=== PATIENT | female | born 1980 | race Caucasian/White ===

== ENCOUNTER 2016-12-07 06:27 | Day surgery (SDC) | payer BC ==
--- NOTE | 2016-12-06 16:33 | PCM.PREANE ---
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 Respiratory: Reports: no symptoms Cardiovascular: Reports: no symptoms GI: Reports: no symptoms Other: Reports: none - PHYSICAL ASSESSMENT Vital Signs: Last Vital Signs Temp 98.2 F 12/07/16 06:47 Pulse 78 12/07/16 06:47 Resp 16 12/07/16 06:47 BP 136/80 12/07/16 06:47 Pulse Ox 98 12/07/16 06:47 Height: 5 ft 1.5 in Weight: 110 lb - ALLERGIES Allergies/Adverse Reactions: Allergies Allergy/AdvReac Type Severity Reaction Status Date / Time No Known Allergies Allergy Verified 05/04/14 09:57 - ANESTHESIA PLAN Anesthesia Type Planned: general anesthesia - ACKNOWLEDGEMENTS Pt an appropriate candidate for the planned anesthesia: Yes Alternatives and risks of anesthesia discussed w pt/guardian: Yes Pt/Guardian understands and agree with anesthesia plan: Yes PreAnesthesia Questionnaire HEENT History: Reports: None Cardiovascular History: Reports: None Respiratory History: Reports: None Gastrointestinal History: Reports: None Genitourinary History: Reports: None 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 (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 below) Other OB/BYN History: infertility Musculoskeletal History: Reports: None Neurological History: Reports: None Psychiatric History: Reports: None Endocrine/Metabolic History: Reports: None Hematologic History: Reports: None Immunologic History: Reports: None Oncologic (Cancer) History: Reports: None Dermatologic History: Reports: None - Infectious Disease History Infectious Disease History: Reports: None - Past Surgical History Head Surgeries/Procedures: Reports: None GI Surgical History: Reports: Cholecystectomy Other Female Surgeries/Procedures: hx of hysteroscopy with myomectomy - SUBSTANCE USE Smoking Status *Q: Never Smoker Number of Drinks Per Day: 0 Recreational Drug Use History: No - HOME MEDS Home Medications: Home Meds Colestipol [Colestipol HCl] 1 tab PO DAILY 12/04/16 [History] PNV95/Ferrous Fumarate/FA [ Vitamins Tablet] 1 tab PO DAILY 12/04/16 [ History] - CURRENT (IN HOUSE) MEDS Current Meds: Current Medications Lactated Ringer's (Ringers, Lactated) 1,000 mls @ 125 mls/hr IV ASDIRECTED [facility] Last Admin: 12/07/16 06:51 Dose: 125 mls/hr Sodium Chloride (Saline Flush) 10 ml FLUSH ASDIRECTED PRN PRN Reason: Keep Vein Open Sodium Chloride (Saline Flush) 2.5 ml FLUSH ASDIRECTED PRN PRN Reason: Keep Vein Open Sodium Chloride (Saline Flush) 10 ml FLUSH ASDIRECTED PRN PRN Reason: Keep Vein Open Sodium Chloride (Saline Flush) 2.5 ml FLUSH ASDIRECTED PRN PRN Reason: Keep Vein Open Discontinued Medications Fentanyl (Sublimaze) Confirm Administered Dose 100 mcg .ROUTE .STK-MED ONE Stop: 12/07/16 07:24 Lactated Ringer's (Ringers, Lactated) 1,000 mls @ 125 mls/hr IV ASDIRECTED [facility] Midazolam HCl (Versed 1 Mg/Ml) Confirm Administered Dose 2 mg .ROUTE .STK-MED ONE Stop: 12/07/16 07:25 Propofol (Diprivan 20 Ml) Confirm Administered Dose 200 mg .ROUTE .STK-MED ONE Stop: 12/07/16 07:26 Sodium Chloride (Saline Flush) 10 ml FLUSH ASDIRECTED PRN PRN Reason: Keep Vein Open Sodium Chloride (Saline Flush) 2.5 ml FLUSH ASDIRECTED PRN PRN Reason: Keep Vein Open <Osvaldo Chaudhary - Last Filed: 12/07/16 07:33> Preanesthetic Assessment - REVIEW OF SYSTEMS Constitutional: Reports: no symptoms 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: 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: no symptoms Respiratory: Reports: no symptoms Cardiovascular: Reports: no symptoms GI: Reports: no symptoms Other: Reports: none - PHYSICAL ASSESSMENT ASA Class: 1 Mental Status: alert & oriented x3 Airway Class: Mallampati = 1 Dentition: Reports: normal dentition Thyro-Mental Finger Breadths: 3 Mouth Opening Finger Breadths: 3 ROM/Head Extension: full Respiratory Status: lungs clear to auscultation bilaterally Cardiovascular Status: regular rate & rhythm, normal S1, S2, no murmur, blood pressure WNL - BLOOD Blood Available: No Product(s) Available: None - ANESTHESIA PLAN Anesthesia Type Planned: general anesthesia - ACKNOWLEDGEMENTS Pt an appropriate candidate for the planned anesthesia: Yes Alternatives and risks of anesthesia discussed w pt/guardian: Yes Pt/Guardian understands and agree with anesthesia plan: Yes
[~2016-12-07 06:27] MED LIST: Lactated Ringers 1,000 ML IV SCH; Sodium Chloride 0.9% 10 ML Syringe FLUSH PRN; Sodium Chloride 0.9% 2.5 ML Syringe FLUSH PRN
[2016-12-07] MEDS ORDERED: fentaNYL 100 MCG/2 ML SDV ONE (07:23)
[2016-12-07] MEDS ORDERED: Midazolam 1 MG/ML 2 ML SDV ONE (07:24)
[2016-12-07] MEDS ORDERED: Propofol 200 MG/20 ML SDV ONE (07:25)
[2016-12-07] MEDS ORDERED: Ondansetron 4 MG/2 ML SDV ONE (08:48)
[2016-12-07] MEDS ORDERED: Dexamethasone 4 MG/ML 5 ML MDV ONE (08:48)
[2016-12-07] MEDS ORDERED: ePHEDrine 50 MG/ML SDV ONE (08:48)
[2016-12-07] MEDS ORDERED: Ketorolac 30 MG/ML SDV ONE (08:48)
--- NOTE | 2016-12-07 09:01 | PCM.OPNOTE ---
- General Post-Op/Procedure Note Date of Surgery/Procedure: 12/07/16 Operative Procedure(s): Operative hysteroscopy/polypectomy/D&C/colposcopy with biopsy Findings: Uterine polyp posterior mid fundal region, metaplasia/CHARLIE I Pre Op Diagnosis: Endometrial polyp. LGSIL pap Post-Op Diagnosis: Same Anesthesia Technique: General LMA Primary Surgeon: Mary Perez Pathology: uterine polyp, curretings of endometrium, ECC, Biopsy of cervix at 11 and 6 oclock Fluid Replacement, Intraop: 1,000 EBL in mLs: 50 Complications: None known Condition: Good Free Text/Narrative:: Dictation [id number]
--- NOTE | 2016-12-07 09:20 | PCM.POSTAN ---
POST ANESTHESIA ASSESSMENT - MENTAL STATUS Mental Status: alert, oriented - RESPIRATORY Respiratory Status: respiratory rate WNL, airway patent, O2 saturation stable - CARDIOVASCULAR CV Status: pulse rate WNL, blood pressure stable - GASTROINTESTINAL GI Status: no symptoms - POST OP HYDRATION Hydration Status: adequate & stable
[2016-12-07 09:32] VITALS: BP 146/88
[2016-12-07] MEDS ORDERED: Acetaminophen/oxyCODONE 325-5 MG Tab PO PRN (09:40)
--- NOTE | 2016-12-07 10:15 | OR ---
SURGEON: Mary Perez M.D. DATE OF PROCEDURE: 12/07/2016 PREOPERATIVE DIAGNOSES: 1. Endometrial polyp. 2. Low-grade squamous intraepithelial lesion pap. POSTOPERATIVE DIAGNOSES: 1. Endometrial polyp. 2. Low-grade squamous intraepithelial lesion pap. PROCEDURE: Operative hysteroscopy with polypectomy, curettage of endometrium, colposcopy with biopsies. ESTIMATED BLOOD LOSS: 50 mL. ANESTHESIA: General LMA. FLUIDS: 1000 mL of crystalloid. COMPLICATIONS: None known. FINDINGS: Mid fundal uterine polyp. Otherwise, normal-appearing uterine cavity, cervical stenosis. Metaplasia CHARLIE 1 on colposcopy. DISPOSITION: The patient to PACU, stable. PROCEDURE IN DETAIL: Katy is a 36-year-old female, who is preparing to undergo IVF in January and then preparation of endometrium was evaluated and Dr De La Torre felt there was a polypoid lesion and is asking for her to undergo hysteroscopy in order to further evaluate and remove. The risks of the procedure have been discussed with the patient. She also has had recent pap smear which was LGSIL and she requests colposcopy be performed at the same time as the hysteroscopy. Once again, risks of the procedure have been discussed and proper consent obtained. The patient was taken to operating room, where she underwent general LMA and was placed in modified supine position, was prepped in the usual sterile fashion. SCDs lower extremities. The bladder was drained. Time-out was performed. Speculum was introduced in the vagina and posterior lip of the cervix was grasped. The cervix was gently dilated to 6 mm. It was not easily dilated as the internal os was fairly stenotic. Then the hysteroscope was introduced using normal saline with distension media. The fundus appeared smooth with normal appearing ostia. There was a posterior mid fundal polypoid lesion noted. The MyoSure was introduced and the polyp was resected. Curettage was then performed. The remaining endometrium uterine cavity appears normal at this juncture, photographs taken. The hysteroscope was now removed. Attention was turned to performing colposcopy. colposcope was centered. The cervix was visualized and dilute acetic acid was then placed upon the cervix after GreenLight exam was performed. The majority of the tissue appears to be inflammatory metaplasia. However, there was a mosaic pattern at the 11 o'clock position. Using Tischler, biopsy was performed, posteriorly at 6 o'clock a biopsy was also performed. Endocervical curettings were now performed. All specimens to pathology. Monsel's was gently placed followed by silver nitrate along the biopsy site. Hemostasis was then evident. The patient tolerated the procedure well. All instruments removed from the vagina. Sponge and instrument count was correct x2. The patient will go to PACU in stable condition. Specimens to pathology. NICKI / TIM /[id number] MTDKetan
--- NOTE | 2016-12-07 10:23 | PCM48HPAN ---
Post Anesthesia Note - EVALUATION WITHIN 48HRS OF ANESTHETIC Vital Signs in Normal Range: Yes Patient Participated in Evaluation: Yes Respiratory Function Stable: Yes Airway Patent: Yes Cardiovascular Function Stable: Yes Hydration Status Stable: Yes Pain Control Satisfactory: Yes Nausea and Vomiting Control Satisfactory: Yes Mental Status Recovered: Yes
== END 2016-12-07 10:15 | disposition home or self-care (01) ==
LOC: MW.SDS 06:27
PROVIDERS: ATTEND Obstetrics & Gynecology
PROC: 0UB98ZZ Excision of Uterus, Via Natural or Artificial Opening Endoscopic (ICD-10-PCS; principal; 2016-12-07)
PROC: 0UDB8ZZ Extraction of Endometrium, Via Natural or Artificial Opening Endoscopic (ICD-10-PCS; 2016-12-07)
PROC: 0UJH8ZZ Inspection of Vagina and Cul-de-sac, Via Natural or Artificial Opening Endoscopic (ICD-10-PCS; 2016-12-07)
DX: N87.0 Mild cervical dysplasia (principal); N84.0 Polyp of corpus uteri; N97.9 Female infertility, unspecified
CPT/HCPCS: 57454; 58558; 88305; A9270; J1100; J1885; J2250; J2405; J3010; J7120; 00952; J2704

== ENCOUNTER → 2017-02-05 | Outpatient (CLI) | payer BC | LOC: MW.LAB 09:50 | PROVIDERS: ATTEND Obstetrics & Gynecology | DX: Z33.1 Pregnant state, incidental (principal) | CPT/HCPCS: 36415; 84144; 84702 ==

== ENCOUNTER → 2017-02-15 | Outpatient (CLI) | payer BC | LOC: MW.LAB 11:23 | PROVIDERS: ATTEND Nurse Practitioner Family | DX: O09.811 Supervision of pregnancy resulting from assisted reproductive technology, first trimester (principal) | CPT/HCPCS: 36415; 84144 ==

== ENCOUNTER 2017-09-16 05:18 | Inpatient (IN) | payer BC ==
[2017-09-16] MEDS ORDERED: Sodium Chloride 0.9% 10 ML Syringe FLUSH PRN (05:26)
[2017-09-16] MEDS ORDERED: ceFAZolin 1 GM in Premix Bag 1 BAG IV ONE (05:26)
[2017-09-16] MEDS ORDERED: Sodium Chloride 0.9% 2.5 ML Syringe FLUSH PRN (05:26)
[2017-09-16] MEDS ORDERED: Oxytocin/0.9 % Sodium Chloride 30 UNIT/500 ML BAG IV SCH (05:30)
[2017-09-16] MEDS ORDERED: Citric Acid/Sodium Citrate Solution 30 ML Cup PO SCH (05:30)
--- NOTE | 2017-09-16 05:31 | PCM.PREANE ---
Preanesthetic Assessment - Procedure Proposed Procedure: ; placenta previa - Anesthesia/Transfusion/Family Hx Anesthesia History: Prior Anesthesia Without Reaction Other Type of Anesthesia Reaction Comment: DENIES ANY FAMILY HX OF ANESTHESIA PROBLEMS Transfusion History: No Prior Transfusion(s) Intubation History: Unknown - Review of Systems General: Other ( - term; placenta previa) Pulmonary: No Symptoms Cardiovascular: No Symptoms Gastrointestinal: Other (heartburn occasoinally with ) Neurological: Headache (hx of migraines) Other: Reports: None - Physical Assessment NPO Status Date: 09/15/17 NPO Status Time: 23:00 Height: 5 ft 1 in Weight: 139 lb ASA Class: 2 Mental Status: Alert & Oriented x3 Airway Class: Mallampati = 1 Dentition: Reports: Normal Dentition Thyro-Mental Finger Breadths: 3 Mouth Opening Finger Breadths: 3 ROM/Head Extension: Full Lungs: Clear to Auscultation, Normal Respiratory Effort Cardiovascular: Regular Rate, Regular Rhythm, No Murmurs - Allergies Allergies/Adverse Reactions: Allergies Allergy/AdvReac Type Severity Reaction Status Date / Time No Known Allergies Allergy Verified 05/04/14 09:57 - Blood Blood Available: Yes Product(s) Available: PRBC (T and S) - Anesthesia Plan Pre-Op Medication Ordered: Antacids - Acknowledgements Anesthesia Type Planned: Spinal Pt an Appropriate Candidate for the Planned Anesthesia: Yes Alternatives and Risks of Anesthesia Discussed w Pt/Guardian: Yes Pt/Guardian Understands and Agrees with Anesthesia Plan: Yes PreAnesthesia Questionnaire HEENT History: Reports: None Cardiovascular History: Reports: None Respiratory History: Reports: None Gastrointestinal History: Reports: Other (See Below) Other Gastrointestinal History: occasional heartburn with Genitourinary History: Reports: None 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 Below) Other OB/BYN History: infertility Musculoskeletal History: Reports: None Neurological History: Reports: Migraines Psychiatric History: Reports: None Endocrine/Metabolic History: Reports: None Hematologic History: Reports: None Immunologic History: Reports: None Oncologic (Cancer) History: Reports: None Dermatologic History: Reports: None - Infectious Disease History Infectious Disease History: Reports: None - Past Surgical History Head Surgeries/Procedures: Reports: None GI Surgical History: Reports: Cholecystectomy Female Surgical History: Reports: Other (See Below) Other Female Surgeries/Procedures: hysteroscopy with polypectomy x2 - SUBSTANCE USE Smoking Status *Q: Never Smoker Number of Drinks Per Day: 0 Recreational Drug Use History: No - HOME MEDS Home Medications: Home Meds Colestipol [Colestipol HCl] 1 tab PO DAILY 12/04/16 [History] PNV95/Ferrous Fumarate/FA [ Vitamins Tablet] 1 tab PO DAILY 12/04/16 [ History]
[2017-09-16] MEDS: Lactated Ringers 1,000 ML IV SCH ×5 (05:52→21:56)
[2017-09-16] MEDS ORDERED: Oxytocin 10 Units/1 ML SDV ONE (07:08)
[2017-09-16] MEDS ORDERED: Morphine PF 10 MG/10 ML SDV ONE (07:08)
[2017-09-16] MEDS ORDERED: Ondansetron 4 MG/2 ML SDV ONE (07:08)
[2017-09-16] MEDS ORDERED: ePHEDrine 50 MG/ML SDV ONE (08:49)
[2017-09-16] MEDS ORDERED: Ibuprofen 800 MG Tab PO PRN (09:04)
[2017-09-16] MEDS ORDERED: Simethicone 80 MG Tab.Chew PO PRN (09:04)
[2017-09-16] MEDS ORDERED: Lanolin 100% Cream 7 GM Tube TOP PRN (09:04)
[2017-09-16] MEDS ORDERED: diphenhydrAMINE 50 MG/ML SDV IVPUSH PRN ×2 (09:04→09:18)
[2017-09-16] MEDS ORDERED: Bisacodyl 10 MG Supp RECTAL PRN (09:04)
[2017-09-16] MEDS ORDERED: Ondansetron 4 MG/2 ML SDV IV PRN (09:04)
[2017-09-16] MEDS ORDERED: Aluminum Hydroxide/Magnesium Hydroxide/Simethicone Susp 30 ML Cup PO PRN (09:04)
[2017-09-16] MEDS ORDERED: Acetaminophen/oxyCODONE 325-5 MG Tab PO PRN (09:15)
--- NOTE | 2017-09-16 09:15 | PCM.OPNOTE ---
- General Post-Op/Procedure Note Date of Surgery/Procedure: 09/16/17 Operative Procedure(s): Primary LTCS Findings: Term female APGARs 9, 9 weight 3030 gm. Posterior low lying placenta with accreta Pre Op Diagnosis: 38 week IUP. Low lying placenta. Gestational DM Post-Op Diagnosis: Same Anesthesia Technique: Spinal Primary Surgeon: Mary Perez Pathology: placenta Fluid Replacement, Intraop: 2,000 EBL in mLs: 500 Complications: None known Condition: Good Free Text/Narrative:: Intake & Output 09/15/17 09/16/17 09/16/17 22:59 06:59 14:59 Intake Total 1000 Balance 1000 Dictation [id number]
[2017-09-16] MEDS ORDERED: Naloxone 0.4 MG/ML Syringe IVPUSH PRN (09:18)
[2017-09-16] MEDS ORDERED: Nalbuphine 10 MG/1 ML Vial IVPUSH PRN (09:18)
--- NOTE | 2017-09-16 09:31 | PCM.POSTAN ---
POST ANESTHESIA ASSESSMENT - MENTAL STATUS Mental Status: Alert, Oriented - VITAL SIGNS Pulse Rate: 74 SaO2: 100 Blood Pressure: 118/67 - RESPIRATORY Respiratory Status: Respiratory Rate WNL, Airway Patent, O2 Saturation Stable - CARDIOVASCULAR CV Status: Pulse Rate WNL, Blood Pressure Stable - GASTROINTESTINAL GI Status: Nauseau (has struggled with nausea, but appears to be doing better at this time) - PAIN Pain Score: 0 (spinal still intact) - POST OP HYDRATION Hydration Status: Adequate & Stable
[2017-09-16] MEDS: Ketorolac 30 MG/ML SDV IVPUSH SCH ×3 (09:33→21:10)
--- NOTE | 2017-09-16 14:02 | OR ---
SURGEON: Mary Perez M.D. DATE OF PROCEDURE: 09/16/2017 PREOPERATIVE DIAGNOSES: 1. A 38 weeks intrauterine . 2. Low-lying placenta. 3. Gestational diabetes. POSTOPERATIVE DIAGNOSES: 1. A 38 weeks intrauterine . 2. Low-lying placenta. 3. Gestational diabetes. PROCEDURE: Primary low-transverse section. ANESTHESIA: Spinal. ESTIMATED BLOOD LOSS: 500 mL. FLUIDS: 2000 mL crystalloid. FINDINGS: Viable female, score 9 at 1 minute, 9 at 5 minutes. Weight of 3030 g. Delivery of a low lying posterior placenta with accreta suspected along the inferior edge. DISPOSITION: The patient to PACU, to nursery, stable. INDICATIONS: Katy is a 37-year-old female, G1, P0, at 38 weeks gestation, who presents today for scheduled primary delivery due to persistently low lying placenta with a low-lying vessel repeatedly visualized on ultrasound. The patient's has been complicated by IVF conception and gestational diabetes. PROCEDURE IN DETAIL: After proper consent was obtained, the patient was taken to the operating room, where she underwent spinal anesthetic, was then placed in a dorsal supine position with leftward tilt. SCDs to the lower extremities and [place] to gravity. She was prepped and draped in the usual sterile fashion and received Ancef prophylactically. The patient was prepped and draped in usual sterile fashion. Time-out was performed. Anesthesia was tested and found be adequate. A Pfannenstiel skin incision was carried down to the level of the rectus fascia, which was incised in midline and lateralized on either side sharply and bluntly. The superior aspect of fascia was tented upward, dissected sharply and bluntly away from underlying muscles. In a similar aspect, this was performed in the inferior aspect of the fascia. Rectus muscles were in the midline and peritoneum was tented upward and entered sharply. Rectus muscles and peritoneum was now bluntly. Uterine position and position were palpated. Self-retaining retractor was now gently placed. Uterovesical reflection was visualized. Bladder flap was created sharply and bluntly. Bladder was mobilized away from lower uterine segment. A low-transverse hysterotomy was now performed. The uterus entered with blunt end of the scalpel. Clear fluid returned with the amniotomy. Hysterotomy was now lateralized bluntly. The infant's head was flexed, delivered from the pelvis. Fundal pressure was applied. The 's head was delivered followed by anterior shoulder, posterior shoulder, and remainder of the body without difficulty. The 's oropharynx and nares were bulb suctioned. Cord was clamped x2 and cut. was handed off to attending nursing staff. Cord arterial, cord venous, and cord blood sampling were obtained. The placenta was now attempted to be delivered, for the most part delivered fairly easily until the inferior edge which was quite adherent. This was gently cleaved from the posterior lower uterine segment. Any remaining tissue was gently extracted. Region appeared hemostatic. Placenta will be sent to Pathology for further analysis. Uterine cavity was cleared of all clot and debris and any retained amniotic or placental tissue fragments. Low transverse hysterotomy was repaired using 0 Vicryl in continuous running locked fashion followed by a re-imbricating layer. Area in midline was oozing, this was plicated with a [id number] suture x1. Hemostasis thereafter evident. Posterior aspect of the uterus inspected and found to be hemostatic. No defects or hematomas were found to be forming. The region was well irrigated, suctioned, and dried. Tubes and ovaries appeared normal. Colonic gutters were cleared of all clot and debris, well irrigated, and suction dried. Hysterotomy was inspected and found to be hemostatic. Self-retaining retractor now gently removed. Bladder blade was placed. The hysterotomy was once again inspected and found to be hemostatic. Uterus remained firm. Rectus muscle was reapproximated using 0 Vicryl in inverted mattress suture technique. Anterior aspect of the muscle and posterior aspect of the fascia were closely inspected. Any areas of oozing were cauterized. The rectus fascia was reapproximated using 0 Vicryl in continuous running fashion beginning laterally and tied in the midline. Subcutaneous tissue was well irrigated, suctioned, and dried. Any areas of oozing were now cauterized. Region was well irrigated, suctioned, and dried once again. Skin edges were reapproximated using 3-0 Vicryl on a Tim needle in subcuticular fashion followed by layering of half-inch Steri-Strips Mastisol. Uterus remained firm and inspected vaginally and there is just one large blood clot that is able to be produced with fundal massage, otherwise uterus remained firm and hemostasis evident. The patient will go to PACU in stable condition. Specimens topathology. to nursery. NICKI / TIM /[id number] MTDD
[2017-09-16] MEDS ORDERED: Promethazine 25 MG/ML SDV IM PRN (16:25)
[2017-09-16] MEDS ORDERED: Lactated Ringers 500 ML IV SCH (16:29)
--- NOTE | 2017-09-16 17:40 | PCM48HPAN ---
Post Anesthesia Note - EVALUATION WITHIN 48HRS OF ANESTHETIC Vital Signs in Normal Range: Yes Patient Participated in Evaluation: Yes Respiratory Function Stable: Yes Airway Patent: Yes Cardiovascular Function Stable: Yes Hydration Status Stable: Yes Pain Control Satisfactory: Yes Nausea and Vomiting Control Satisfactory: No Mental Status Recovered: Yes - COMMENTS/OBSERVATIONS Free Text/Narrative:: Pt states that she has continued to struggle with nausea today despite VSS being stable. Pt still appears pale and nauseated. Pt just recently received IM phenergan for the first time, so will monitor if that helps more than the zofran. Pain well controlled and no anesthesia complications noted.
[2017-09-16] MEDS: Docusate Sodium 100 MG Cap PO SCH (21:10)
[2017-09-17] MEDS: Ketorolac 30 MG/ML SDV IVPUSH SCH ×2 (03:12→09:04)
--- NOTE | 2017-09-17 08:22 | PCM.PNPP ---
- General Info Date of Service: 09/17/17 Functional Status: Reports: Pain Controlled, Tolerating Diet - Review of Systems General: Denies: Fever, Weakness Pulmonary: Denies: Shortness of Breath Cardiovascular: Denies: Chest Pain, Palpitations, Lightheadedness Gastrointestinal: Denies: Nausea, Vomiting Genitourinary: Denies: Flank Pain Musculoskeletal: Reports: No Symptoms Neurological: Reports: No Symptoms Psychiatric: Reports: No Symptoms - General Info Date of Service: 09/17/17 - Patient Data Vital Signs - Most Recent: Last Vital Signs Temp 36.2 C 09/17/17 04:00 Pulse 90 09/17/17 06:00 Resp 16 09/17/17 07:42 BP 96/63 09/17/17 04:00 Pulse Ox 94 L 09/17/17 07:42 Weight - Most Recent: 63.049 kg I&O - Last 24 Hours: Intake & Output 09/16/17 09/17/17 09/17/17 22:59 06:59 14:59 Intake Total 1498 360 Output Total 200 2100 Balance 1298 -1740 Lab Results - Last 24 Hours: Laboratory Results - last 24 hr 09/16/17 09/17/17 09/17/17 Range/Units 05:51 05:26 05:26 WBC 11.15 H (4.0-11.0) K/uL RBC 2.75 L (4.30-5.90) M/uL Hgb 8.1 L (12.0-16.0) g/dL Hct 24.2 L (36.0-46.0) % MCV 88.0 (80.0-98.0) fL MCH 29.5 (27.0-32.0) pg MCHC 33.5 (31.0-37.0) g/dL RDW Std Deviation 45.1 (28.0-62.0) fl RDW Coeff of Joan 14 (11.0-15.0) % Plt Count 137 L (150-400) K/uL MPV 9.80 (7.40-12.00) fL Nucleated RBC % 0.0 /100WBC Nucleated RBCs # 0 K/uL Fasting Glucose 80 (60-110) mg/dL Blood Type A POSITIVE Antibody Screen NEGATIVE Crossmatch See Detail Med Orders - Current: Current Medications Al Hydroxide/Mg Hydroxide (Mag-Al Plus) 30 ml PO Q8H PRN PRN Reason: Heartburn Bisacodyl (Dulcolax) 10 mg RECTAL .ONCE PRN PRN Reason: Constipation Citric Acid/Sodium Citrate (Bicitra Solution) 30 ml PO .ONCE [facility] Last Admin: 09/16/17 07:30 Dose: 30 ml Diphenhydramine HCl (Benadryl) 25 mg IVPUSH Q6H PRN PRN Reason: Itching or Nausea Diphenhydramine HCl (Benadryl) 25 mg IVPUSH Q4H PRN PRN Reason: pruritis Stop: 09/17/17 09:19 Docusate Sodium (Colace) 100 mg PO BID [facility] Last Admin: 09/16/17 21:10 Dose: 100 mg Emollient Ointment (Lansinoh Hpa) 0 gm TOP ASDIRECTED PRN PRN Reason: Sore Nipples Last Admin: 09/16/17 17:11 Dose: 7 gm Oxytocin/Sodium Chloride (Oxytocin 30 Unit/500 Ml-Ns) 30 unit in 500 mls @ 250 mls/hr IV TITRATE [facility] Lactated Ringer's (Ringers, Lactated) 1,000 mls @ 125 mls/hr IV ASDIRECTED [facility] Last Admin: 09/16/17 21:56 Dose: 125 mls/hr Lactated Ringer's (Ringers, Lactated) 500 mls @ 500 mls/hr IV .BOLUS [facility] Last Admin: 09/16/17 17:16 Dose: 500 mls/hr Ibuprofen (Motrin) 800 mg PO Q8H PRN PRN Reason: mild pain or fever Ketorolac Tromethamine (Toradol) 30 mg IVPUSH Q6H [facility] Stop: 09/17/17 09:16 Last Admin: 09/17/17 03:12 Dose: 30 mg Nalbuphine HCl (Nubain) 2.5 mg IVPUSH Q3H PRN PRN Reason: Pruritis Stop: 09/17/17 09:19 Naloxone HCl (Narcan) 0.1 mg IVPUSH ONETIME PRN PRN Reason: RR <6 WITH STIMULATION Stop: 09/17/17 09:19 Ondansetron HCl (Zofran) 4 mg IV Q4H PRN PRN Reason: Nausea/Vomiting Last Admin: 09/16/17 12:02 Dose: 4 mg Oxycodone/Acetaminophen (Percocet 325-5 Mg) 1 tab PO Q4H PRN PRN Reason: Pain (moderate 4-6) Oxycodone/Acetaminophen (Percocet 325-5 Mg) 2 tab PO Q4H PRN PRN Reason: Pain (moderate 4-6) Oxycodone/Acetaminophen (Percocet 325-5 Mg) 1 tab PO .Q4HRS PRN PRN Reason: Breakthrough Pain Stop: 09/17/17 09:00 Promethazine HCl (Phenergan) 12.5 mg IM Q6H PRN PRN Reason: Nausea Last Admin: 09/16/17 17:11 Dose: 12.5 mg Simethicone (Simethicone) 80 mg PO Q4H PRN PRN Reason: Gas Sodium Chloride (Saline Flush) 10 ml FLUSH ASDIRECTED PRN PRN Reason: Keep Vein Open Sodium Chloride (Saline Flush) 2.5 ml FLUSH ASDIRECTED PRN PRN Reason: Keep Vein Open Discontinued Medications Ephedrine Sulfate (Ephedrine Sulfate) Confirm Administered Dose 50 mg .ROUTE .STK-MED ONE Stop: 09/16/17 08:50 Cefazolin Sodium/Dextrose 1 gm (/ Premix) 50 mls @ 100 mls/hr IV ONETIME ONE Stop: 09/16/17 05:55 Last Admin: 09/16/17 19:49 Dose: Not Given Lactated Ringer's (Ringers, Lactated) 1,000 mls @ 500 mls/hr IV .BOLUS [facility] Last Admin: 09/16/17 07:28 Dose: 500 mls/hr Cefazolin Sodium/Dextrose (Ancef) Confirm Administered Dose 50 mls @ as directed .ROUTE .STK-MED ONE Stop: 09/16/17 07:10 Morphine Sulfate (Duramorph Pf) Confirm Administered Dose 10 mg .ROUTE .STK-MED ONE Stop: 09/16/17 07:09 Ondansetron HCl (Zofran) Confirm Administered Dose 4 mg .ROUTE .STK-MED ONE Stop: 09/16/17 07:09 Oxytocin (Pitocin) Confirm Administered Dose 30 unit .ROUTE .STK-MED ONE Stop: 09/16/17 07:09 - Interaction Infant Disposition, : [place] in Room with Family Support Person: - Recovery Exam Fundal Tone: Firm Fundal Level: 1 Fingerbreadths Below Umbilicus Fundal Placement: Midline Lochia Amount: Scant Lochia Color: Rubra/Red Perineum Description: Intact, Minimal Bruising/Swelling Episiotomy/Laceration: None Bladder Status: Indwelling Catheter in Place Urinary Elimination: Indwelling Catheter - Exam General: Alert, Oriented Lungs: Normal Respiratory Effort Cardiovascular: Regular Rate, Regular Rhythm GI/Abdominal Exam: Soft, No Distention Skin: Warm, Dry Wound/Incisions: Healing Well. No: Drainage, Erythema Psy/Mental Status: Alert - Problem List & Annotations (1) delivery delivered SNOMED Code(s): 404544249 Code(s): O82 - ENCOUNTER FOR DELIVERY WITHOUT INDICATION Status: Acute Current Visit: Yes - Problem List Review Problem List Initiated/Reviewed/Updated: Yes - My Orders Last 24 Hours: My Active Orders 09/16/17 09:04 Ambulate [RC] PER UNIT ROUTINE Antiembolic Devices [RC] PER UNIT ROUTINE Communication Order [RC] PER UNIT ROUTINE Communication Order [RC] PER UNIT ROUTINE Communication Order [RC] Per Unit Routine May Shower [RC] ASDIRECTED Notify Provider Intake and Out [RC] ASDIRECTED Notify Provider Vital Signs [RC] ASDIRECTED Oxygen Therapy [RC] ASDIRECTED RT Incentive Spirometry [RC] Q2HWA Acetaminophen/oxyCODONE [Percocet 325-5 MG] 1 tab PO Q4H PRN Acetaminophen/oxyCODONE [Percocet 325-5 MG] 2 tab PO Q4H PRN Alum Hydrox/Mag Hydrox/Simeth [Mag-Al Plus] 30 ml PO Q8H PRN Bisacodyl [Dulcolax] 10 mg RECTAL .ONCE PRN Ibuprofen [Motrin] 800 mg PO Q8H PRN Lanolin [Lansinoh HPA] See Dose Instructions TOP ASDIRECTED PRN Ondansetron [Zofran] 4 mg IV Q4H PRN Simethicone 80 mg PO Q4H PRN diphenhydrAMINE [Benadryl] 25 mg IVPUSH Q6H PRN Abdominal Binder [OM.PC] Routine Assess Lochia [WOMSER] Per Unit Routine Assess Uterine Involution [WOMSER] Per Unit Routine Breast Pump [WOMSER] Per Unit Routine Heat Therapy [OM.PC] Routine Ice Therapy [OM.PC] Routine Peripheral IV Discontinue [OM.PC] Routine Sequential Compression Device [OM.PC] Per Unit Routine 09/16/17 09:15 Ketorolac [Toradol] 30 mg IVPUSH Q6H Lactated Ringers [Ringers, Lactated] 1,000 ml IV ASDIRECTED 09/16/17 16:25 Promethazine [Phenergan] 12.5 mg IM Q6H PRN 09/16/17 16:29 Lactated Ringers [Ringers, Lactated] 500 ml IV .BOLUS 09/16/17 21:00 Docusate Sodium [Colace] 100 mg PO BID 09/16/17 Lunch Regular Diet [DIET] - Assessment Assessment:: POD 1 status post Primary LTCS for partial previa Suspected accreta Anemia--chronic, exacerbated with acute blood loss Gestational diabetes, fasting glucose normal - Plan Plan:: patient doing well overall. [place] removed this am, has not voided yet. Nausea has resolved. Pain is well controlled. Working with . Encouraged to ambulate, may shower later. Continue postoperative cares.
[2017-09-17] MEDS: Docusate Sodium 100 MG Cap PO SCH ×2 (09:04→23:49)
[2017-09-17] MEDS: Acetaminophen/oxyCODONE 325-5 MG Tab PO PRN ×3 (14:33→23:53)
[2017-09-18] MEDS: Acetaminophen/oxyCODONE 325-5 MG Tab PO PRN ×2 (06:34→09:47)
[2017-09-18] MEDS: Docusate Sodium 100 MG Cap PO SCH (08:36)
[2017-09-18 08:56] VITALS: BP 106/64
--- NOTE | 2017-09-18 09:13 | PCM.PNPP ---
- General Info Date of Service: 09/18/17 Functional Status: Reports: Pain Controlled, Tolerating Diet, Ambulating, Urinating - Review of Systems General: Denies: Fever, Weakness Pulmonary: Denies: Shortness of Breath Cardiovascular: Denies: Chest Pain, Palpitations, Lightheadedness Gastrointestinal: Denies: Nausea, Vomiting Genitourinary: Denies: Flank Pain Neurological: Reports: No Symptoms Psychiatric: Reports: No Symptoms - General Info Date of Service: 09/18/17 - Patient Data Vital Signs - Most Recent: Last Vital Signs Temp 36.8 C 09/18/17 08:55 Pulse 84 09/18/17 08:55 Resp 16 09/18/17 08:55 BP 106/64 09/18/17 08:55 Pulse Ox 96 09/18/17 08:55 Weight - Most Recent: 63.049 kg Med Orders - Current: Current Medications Al Hydroxide/Mg Hydroxide (Mag-Al Plus) 30 ml PO Q8H PRN PRN Reason: Heartburn Bisacodyl (Dulcolax) 10 mg RECTAL .ONCE PRN PRN Reason: Constipation Citric Acid/Sodium Citrate (Bicitra Solution) 30 ml PO .ONCE [facility] Last Admin: 09/16/17 07:30 Dose: 30 ml Diphenhydramine HCl (Benadryl) 25 mg IVPUSH Q6H PRN PRN Reason: Itching or Nausea Docusate Sodium (Colace) 100 mg PO BID [facility] Last Admin: 09/18/17 08:36 Dose: 100 mg Emollient Ointment (Lansinoh Hpa) 0 gm TOP ASDIRECTED PRN PRN Reason: Sore Nipples Last Admin: 09/16/17 17:11 Dose: 7 gm Oxytocin/Sodium Chloride (Oxytocin 30 Unit/500 Ml-Ns) 30 unit in 500 mls @ 250 mls/hr IV TITRATE [facility] Lactated Ringer's (Ringers, Lactated) 1,000 mls @ 125 mls/hr IV ASDIRECTED [facility] Last Admin: 09/16/17 21:56 Dose: 125 mls/hr Lactated Ringer's (Ringers, Lactated) 500 mls @ 500 mls/hr IV .BOLUS [facility] Last Admin: 09/16/17 17:16 Dose: 500 mls/hr Ibuprofen (Motrin) 800 mg PO Q8H PRN PRN Reason: mild pain or fever Ondansetron HCl (Zofran) 4 mg IV Q4H PRN PRN Reason: Nausea/Vomiting Last Admin: 09/16/17 12:02 Dose: 4 mg Oxycodone/Acetaminophen (Percocet 325-5 Mg) 1 tab PO Q4H PRN PRN Reason: Pain (moderate 4-6) Last Admin: 09/18/17 06:34 Dose: 1 tab Oxycodone/Acetaminophen (Percocet 325-5 Mg) 2 tab PO Q4H PRN PRN Reason: Pain (moderate 4-6) Last Admin: 09/17/17 19:40 Dose: 2 tab Promethazine HCl (Phenergan) 12.5 mg IM Q6H PRN PRN Reason: Nausea Last Admin: 09/16/17 17:11 Dose: 12.5 mg Simethicone (Simethicone) 80 mg PO Q4H PRN PRN Reason: Gas Sodium Chloride (Saline Flush) 10 ml FLUSH ASDIRECTED PRN PRN Reason: Keep Vein Open Sodium Chloride (Saline Flush) 2.5 ml FLUSH ASDIRECTED PRN PRN Reason: Keep Vein Open Discontinued Medications Diphenhydramine HCl (Benadryl) 25 mg IVPUSH Q4H PRN PRN Reason: pruritis Stop: 09/17/17 09:19 Ephedrine Sulfate (Ephedrine Sulfate) Confirm Administered Dose 50 mg .ROUTE .STK-MED ONE Stop: 09/16/17 08:50 Cefazolin Sodium/Dextrose 1 gm (/ Premix) 50 mls @ 100 mls/hr IV ONETIME ONE Stop: 09/16/17 05:55 Last Admin: 09/16/17 19:49 Dose: Not Given Lactated Ringer's (Ringers, Lactated) 1,000 mls @ 500 mls/hr IV .BOLUS [facility] Last Admin: 09/16/17 07:28 Dose: 500 mls/hr Cefazolin Sodium/Dextrose (Ancef) Confirm Administered Dose 50 mls @ as directed .ROUTE .STK-MED ONE Stop: 09/16/17 07:10 Ketorolac Tromethamine (Toradol) 30 mg IVPUSH Q6H [facility] Stop: 09/17/17 09:16 Last Admin: 09/17/17 09:04 Dose: 30 mg Morphine Sulfate (Duramorph Pf) Confirm Administered Dose 10 mg .ROUTE .STK-MED ONE Stop: 09/16/17 07:09 Nalbuphine HCl (Nubain) 2.5 mg IVPUSH Q3H PRN PRN Reason: Pruritis Stop: 09/17/17 09:19 Naloxone HCl (Narcan) 0.1 mg IVPUSH ONETIME PRN PRN Reason: RR <6 WITH STIMULATION Stop: 09/17/17 09:19 Ondansetron HCl (Zofran) Confirm Administered Dose 4 mg .ROUTE .STK-MED ONE Stop: 09/16/17 07:09 Oxycodone/Acetaminophen (Percocet 325-5 Mg) 1 tab PO .Q4HRS PRN PRN Reason: Breakthrough Pain Stop: 09/17/17 09:00 Oxytocin (Pitocin) Confirm Administered Dose 30 unit .ROUTE .STK-MED ONE Stop: 09/16/17 07:09 - Interaction Disposition, : [place] in Room with Family Support Person: - Recovery Exam Fundal Tone: Firm Fundal Level: 1 Fingerbreadths Below Umbilicus Fundal Placement: Midline Lochia Amount: Scant Lochia Color: Rubra/Red Perineum Description: Intact, Minimal Bruising/Swelling Episiotomy/Laceration: Approximated Bladder Status: Voiding Urinary Elimination: Voided - Exam General: Alert, Oriented Lungs: Normal Respiratory Effort Cardiovascular: Regular Rate, Regular Rhythm GI/Abdominal Exam: Normal Bowel Sounds, Soft. No: Guarding, Rigid Extremities: No: Jose's Sign Skin: Warm, Dry, Intact Wound/Incisions: Healing Well, No Drainage. No: Erythema Psy/Mental Status: Alert, Normal Affect - Problem List & Annotations (1) delivery delivered SNOMED Code(s): 813465647 Code(s): O82 - ENCOUNTER FOR DELIVERY WITHOUT INDICATION Status: Acute Current Visit: Yes - Problem List Review Problem List Initiated/Reviewed/Updated: Yes - My Orders Last 24 Hours: My Active Orders 09/18/17 09:02 Ready for Discharge [RC] PER UNIT ROUTINE - Assessment Assessment:: POD 2 status post Primary LTCS for partial previa Suspected accreta Anemia--chronic, exacerbated with acute blood loss, orthostatically asymptomatic Gestational diabetes, fasting glucose normal - Plan Plan:: Patient is doing well overall. Would like to go home today. Discharge to home. Discharge instructions reviewed. Infection and bleeding warnings reviewed. Follow up at [facility] 2 and 6 weeks. Needs 75 gm GTT at PP visit.
== END 2017-09-18 12:20 | disposition home or self-care (01) | DRG 540 ==
LOC: MW.OB 05:18
PROVIDERS: ADMIT Obstetrics & Gynecology; ATTEND Obstetrics & Gynecology
PROC: 10D00Z1 Extraction of Products of Conception, Low, Open Approach (ICD-10-PCS; principal; 2017-09-16)
DX: O44.43 Low lying placenta NOS or without hemorrhage, third trimester (principal); O24.429 Gestational diabetes mellitus in childbirth, unspecified control; O09.813 Supervision of pregnancy resulting from assisted reproductive technology, third trimester; Z37.0 Single live birth; Z3A.38 38 weeks gestation of pregnancy
CPT/HCPCS: 01961; 36415; 59025; 82947; 85027; 86850; 86900; 86901; 86920; 86921; 86922; 88307; A9270-GY; J0690; J1885; J2270; J2405; J2550; J2590; J7120

== ENCOUNTER 2018-03-25 11:04 | Day surgery (SDC) | payer OTHER ==
[~2018-03-25 11:04] MED LIST changes: -Lactated Ringers 1,000 ML IV SCH
[2018-03-25] MEDS ORDERED: Lidocaine 2% 5 ML SDV ONE (11:24)
[2018-03-25] MEDS ORDERED: Ondansetron 4 MG/2 ML SDV ONE (11:24)
[2018-03-25] MEDS ORDERED: Midazolam 1 MG/ML 2 ML SDV ONE (11:25)
[2018-03-25] MEDS ORDERED: fentaNYL 250 MCG/5 ML SDV ONE (11:25)
[2018-03-25] MEDS ORDERED: Propofol 200 MG/20 ML SDV ONE (11:25)
--- NOTE | 2018-03-25 11:51 | PCM.PREANE ---
Preanesthetic Assessment - Anesthesia/Transfusion/Family Hx Anesthesia History: Prior Anesthesia Without Reaction Other Type of Anesthesia Reaction Comment: "nausea after c/section" Family History of Anesthesia Reaction: No Transfusion History: No Prior Transfusion(s) Intubation History: Unknown - Review of Systems General: No Symptoms Pulmonary: No Symptoms Cardiovascular: No Symptoms Gastrointestinal: No Symptoms Neurological: No Symptoms Other: Reports: None - Physical Assessment NPO Status Date: 03/24/18 Height: 1.55 m Weight: 51.71 kg ASA Class: 1 Mental Status: Alert & Oriented x3 Airway Class: Mallampati = 1 Dentition: Reports: Normal Dentition ROM/Head Extension: Full Lungs: Clear to Auscultation, Normal Respiratory Effort Cardiovascular: Regular Rate, Regular Rhythm - Allergies Allergies/Adverse Reactions: Allergies Allergy/AdvReac Type Severity Reaction Status Date / Time No Known Allergies Allergy Verified 03/19/18 13:12 - Anesthesia Plan Pre-Op Medication Ordered: None - Acknowledgements Anesthesia Type Planned: General Anesthesia Pt an Appropriate Candidate for the Planned Anesthesia: Yes Alternatives and Risks of Anesthesia Discussed w Pt/Guardian: Yes Pt/Guardian Understands and Agrees with Anesthesia Plan: Yes PreAnesthesia Questionnaire - Past Health History Medical/Surgical History: Denies Medical/Surgical History HEENT History: Reports: None Cardiovascular History: Reports: None Respiratory History: Reports: None Gastrointestinal History: Reports: None Genitourinary History: Reports: None [facility] History: Reports: , Other (See Below) Other OB/BYN History: infertility, egg retrival and egg transfer Musculoskeletal History: Reports: None Neurological History: Reports: Migraines Psychiatric History: Reports: None Endocrine/Metabolic History: Reports: None Hematologic History: Reports: None Immunologic History: Reports: None Oncologic (Cancer) History: Reports: None Dermatologic History: Reports: None - Infectious Disease History Infectious Disease History: Reports: None - Past Surgical History Head Surgeries/Procedures: Reports: None GI Surgical History: Reports: Cholecystectomy Other GI Surgeries/Procedures: cholecystectomy 2013 Female Surgical History: Reports: Section, Other (See Below) Other Female Surgeries/Procedures: hx of hysteroscopy with myomectomy - SUBSTANCE USE Smoking Status *Q: Never Smoker Recreational Drug Use History: No - HOME MEDS Home Medications: Home Meds Colestipol [Colestipol HCl] 1 tab PO DAILY 02/28/17 [History] Acetaminophen [Tylenol] 1 tab PO ASDIRECTED PRN 03/19/18 [History] Aspirin/Acetaminophen/Caffeine [Eql Migraine Formula Caplet] 2 tab PO ASDIRECTED PRN 03/19/18 [History] Ferrous Sulfate [Iron] 1 tab PO DAILY 03/19/18 [History] - CURRENT (IN HOUSE) MEDS Current Meds: Current Medications Sodium Chloride (Saline Flush) 10 ml FLUSH ASDIRECTED PRN PRN Reason: Keep Vein Open Sodium Chloride (Saline Flush) 2.5 ml FLUSH ASDIRECTED PRN PRN Reason: Keep Vein Open Discontinued Medications Fentanyl (Sublimaze) Confirm Administered Dose 250 mcg .ROUTE .STK-MED ONE Stop: 03/25/18 11:26 Lidocaine (Xylocaine-Mpf 2%) Confirm Administered Dose 5 ml .ROUTE .STK-MED ONE Stop: 03/25/18 11:25 Midazolam HCl (Versed 1 Mg/Ml) Confirm Administered Dose 2 mg .ROUTE .STK-MED ONE Stop: 03/25/18 11:26 Ondansetron HCl (Zofran) Confirm Administered Dose 4 mg .ROUTE .STK-MED ONE Stop: 03/25/18 11:25 Propofol (Diprivan 20 Ml) Confirm Administered Dose 200 mg .ROUTE .STK-MED ONE Stop: 03/25/18 11:26
[2018-03-25] MEDS ORDERED: diphenhydrAMINE 50 MG/ML SDV ONE (12:12)
[2018-03-25] MEDS ORDERED: Dexamethasone 4 MG/ML 5 ML MDV ONE (12:12)
[2018-03-25] MEDS ORDERED: Ketorolac 30 MG/ML SDV ONE (12:58)
[2018-03-25] MEDS ORDERED: fentaNYL 100 MCG/2 ML SDV IVPUSH PRN (12:59)
[2018-03-25] MEDS ORDERED: Acetaminophen 1,000 MG in Premix Bag 1 BAG IV PRN (12:59)
--- NOTE | 2018-03-25 13:18 | PCM.OPNOTE ---
- General Post-Op/Procedure Note Date of Surgery/Procedure: 03/25/18 Operative Procedure(s): Operative hysteroscopy with polypectomy. curretage of endometrium Findings: Right mid fundal polypoid lesion, thickened irregular endometrium Pre Op Diagnosis: Abnormal uterine bleeding Post-Op Diagnosis: same Anesthesia Technique: General LMA Primary Surgeon: Mary Perez Fluid Replacement, Intraop: 1,200 (Fluid deficit 175 ml) EBL in mLs: 10 Complications: none known Condition: Good Free Text/Narrative:: Dictation [id number]
--- NOTE | 2018-03-25 13:53 | PCM.POSTAN ---
POST ANESTHESIA ASSESSMENT - MENTAL STATUS Mental Status: Alert, Oriented - RESPIRATORY Respiratory Status: Respiratory Rate WNL, Airway Patent, O2 Saturation Stable - CARDIOVASCULAR CV Status: Pulse Rate WNL, Blood Pressure Stable - GASTROINTESTINAL GI Status: No Symptoms - PAIN Pain Score: 0 - POST OP HYDRATION Hydration Status: Adequate & Stable - OBSERVATIONS Free Text/Narrative:: Pt stable with no complaints.
--- NOTE | 2018-03-25 14:58 | PCM48HPAN ---
Post Anesthesia Note - EVALUATION WITHIN 48HRS OF ANESTHETIC Vital Signs in Normal Range: Yes Patient Participated in Evaluation: Yes Respiratory Function Stable: Yes Airway Patent: Yes Cardiovascular Function Stable: Yes Hydration Status Stable: Yes Pain Control Satisfactory: Yes Nausea and Vomiting Control Satisfactory: Yes Mental Status Recovered: Yes Resp Rate: 11 - COMMENTS/OBSERVATIONS Free Text/Narrative:: no anesthesia problems
--- NOTE | 2018-03-25 15:10 | OR ---
SURGEON: Mary Perez M.D. DATE OF PROCEDURE: 03/25/2018 PREOPERATIVE DIAGNOSIS: Abnormal uterine bleeding. POSTOPERATIVE DIAGNOSIS: Abnormal uterine bleeding. PROCEDURES: Operative hysteroscopy with polypectomy, curettage of endometrium. ANESTHESIA: General LMA. ESTIMATED BLOOD LOSS: 10 mL. FLUIDS: 1200 mL of crystalloid. FLUID DEFICIT: 125 mL of crystalloid. COMPLICATIONS: None. DISPOSITION: The patient to PACU, stable. PROCEDURE IN DETAIL: Katy is a 38-year-old female, who has had ongoing difficulties with abnormal uterine bleeding since basically delivery of her child earlier this year. She has stopped and continues to have irregular persistent vaginal bleeding. Ultrasound reveals a significantly thickened endometrium over 20 mm. She does have a history of endometrial polyps. After discussion of operative procedure, we have opted surgical intervention from the hysteroscopy. Risks of procedure were discussed and proper consent obtained. The patient was taken to operating room where she underwent general LMA, was placed in modified dorsal lithotomy position, was prepped and draped in the usual sterile fashion. SCDs to lower extremities. A time-out was performed. Speculum was introduced in the vagina. Anterior lip of cervix was grasped with an Allis clamp. The cervix was already easily dilated to 8 mm using a MyoSure hysteroscope. This was gently introduced in the uterine cavity using normal saline as distention media. The cervix was already dilated. Actually had placed an Allis clamp on the side of it to help to dissipate the loss of fluid from the uterine cavity. With visualization, the uterine cavity had a right mid fundal polypoid lesion; otherwise, the endometrium was just very thickened heterogeneous across the entire cavity. MyoSure device was introduced, polypoid lesion was resected as well as some of the thicker areas of the endometrium. [place] were able to be visualized on both sides. After this, the MyoSure was device was removed and gentle curettage of the endometrium was performed, to be sent to Pathology for further analysis. Hemostasis appeared evident. Sponge and instrument counts were correct x2. All instruments were removed from the vagina. The patient tolerated the procedure well overall. She will go to PACU in stable condition. Specimens to pathology. NICKI / TIM /[id number]
[2018-03-25 15:37] VITALS: BP 127/86
== END 2018-03-25 15:20 | disposition home or self-care (01) ==
LOC: MW.SDS 11:04
PROVIDERS: ATTEND Obstetrics & Gynecology
DX: N85.01 Benign endometrial hyperplasia (principal); D50.9 Iron deficiency anemia, unspecified; Z79.899 Other long term (current) drug therapy; Z98.890 Other specified postprocedural states
CPT/HCPCS: 36415; 58558; 84703; 85027; 88305; J1100; J1200; J1885; J2250; J2405; J3010; J2704

== ENCOUNTER 2020-08-29 05:12 | Inpatient (IN) | payer OTHER ==
[2020-08-29] MEDS ORDERED: Sodium Chloride 0.9% 10 ML SDV IV PRN (05:23)
[2020-08-29] MEDS ORDERED: Sodium Chloride 0.9% 2.5 ML Syringe FLUSH PRN (05:23)
[2020-08-29] MEDS ORDERED: Citric Acid/Sodium Citrate Solution 30 ML Cup PO ONE (05:23)
[2020-08-29] MEDS ORDERED: ceFAZolin 1 GM in Premix Bag 1 BAG IV ONE (05:23)
[2020-08-29] MEDS ORDERED: Sodium Chloride 0.9% 10 ML Syringe FLUSH PRN (05:23)
[2020-08-29] MEDS ORDERED: Oxytocin/0.9 % Sodium Chloride 30 UNIT/500 ML BAG IV SCH (05:30)
[2020-08-29] MEDS: Lactated Ringers 1,000 ML IV SCH ×2 (05:49→15:17)
[2020-08-29] MEDS ORDERED: Ondansetron 4 MG/2 ML SDV ONE (07:21)
[2020-08-29] MEDS ORDERED: Phenylephrine 1% 10 MG/ML SDV ONE (07:21)
[2020-08-29] MEDS ORDERED: Morphine PF 10 MG/10 ML SDV ONE (07:21)
[2020-08-29] MEDS ORDERED: ePHEDrine 50 MG/ML SDV ONE (08:26)
[2020-08-29] MEDS ORDERED: Ketorolac 30 MG/ML SDV ONE (08:31)
[2020-08-29] MEDS ORDERED: Naloxone 0.4 MG/ML Syringe IVPUSH PRN (08:32)
[2020-08-29] MEDS ORDERED: Nalbuphine 10 MG/1 ML Vial IVPUSH PRN (08:32)
--- NOTE | 2020-08-29 08:32 | PCM.PREANE ---
Preanesthetic Assessment - Anesthesia/Transfusion/Family Hx Anesthesia History: Prior Anesthesia Without Reaction Other Type of Anesthesia Reaction Comment: "nausea after c/section" Family History of Anesthesia Reaction: No Transfusion History: No Prior Transfusion(s) Intubation History: Unknown - Review of Systems General: No Symptoms Pulmonary: No Symptoms Cardiovascular: No Symptoms Gastrointestinal: No Symptoms Neurological: No Symptoms Other: Reports: None - Physical Assessment NPO Status Date: 08/28/20 NPO Status Time: 22:00 Height: 5 ft 1 in Weight: 64.41 kg ASA Class: 2 Mental Status: Alert & Oriented x3 Airway Class: Mallampati = 2 Dentition: Reports: Normal Dentition Thyro-Mental Finger Breadths: 3 Mouth Opening Finger Breadths: 3 ROM/Head Extension: Full Lungs: Clear to Auscultation, Normal Respiratory Effort Cardiovascular: Regular Rate, Regular Rhythm - Lab Values: Laboratory Last Values WBC 10.73 K/uL (4.0-11.0) 08/29/20 05:40 RBC 4.34 M/uL (4.30-5.90) 08/29/20 05:40 Hgb 13.1 g/dL (12.0-16.0) 08/29/20 05:40 Hct 39.2 % (36.0-46.0) 08/29/20 05:40 MCV 90.3 fL (80.0-98.0) 08/29/20 05:40 MCH 30.2 pg (27.0-32.0) 08/29/20 05:40 MCHC 33.4 g/dL (31.0-37.0) 08/29/20 05:40 RDW Std Deviation 42.2 fl (28.0-62.0) 08/29/20 05:40 RDW Coeff of Joan 13 % (11.0-15.0) 08/29/20 05:40 Plt Count 190 K/uL (150-400) 08/29/20 05:40 MPV 11.00 fL (7.40-12.00) 08/29/20 05:40 Nucleated RBC % 0.0 /100WBC 08/29/20 05:40 Nucleated RBCs # 0 K/uL 08/29/20 05:40 Blood Type A POSITIVE 08/29/20 05:40 Antibody Screen NEGATIVE 08/29/20 05:40 - Allergies Allergies/Adverse Reactions: Allergies Allergy/AdvReac Type Severity Reaction Status Date / Time No Known Allergies Allergy Verified 08/23/20 08:38 - Acknowledgements Anesthesia Type Planned: Spinal (Duramorph) Pt an Appropriate Candidate for the Planned Anesthesia: Yes Alternatives and Risks of Anesthesia Discussed w Pt/Guardian: Yes Pt/Guardian Understands and Agrees with Anesthesia Plan: Yes PreAnesthesia Questionnaire - Past Health History Medical/Surgical History: Denies Medical/Surgical History HEENT History: Reports: Other (See Below) Other HEENT History: Migraines. 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: , Other (See Below) : 2 Para: 1 LMP (Approximate): Other OB/BYN History: infertility, egg retrival and egg transfer Musculoskeletal History: Reports: None Neurological History: Reports: Migraines Psychiatric History: Reports: None Endocrine/Metabolic History: Reports: None Hematologic History: Reports: None Immunologic History: Reports: None Oncologic (Cancer) History: Reports: None Dermatologic History: Reports: None - Infectious Disease History Infectious Disease History: Reports: Chicken Pox - Past Surgical History Head Surgeries/Procedures: Reports: None HEENT Surgical History: Reports: None Cardiovascular Surgical History: Reports: None Respiratory Surgical History: Reports: None GI Surgical History: Reports: Cholecystectomy, Colonoscopy Other GI Surgeries/Procedures: Cholecystectomy 2013. Female Surgical History: Reports: Section, D&C, Other (See Below) Other Female Surgeries/Procedures: hx of hysteroscopy with myomectomy Endocrine Surgical History: Reports: None Neurological Surgical History: Reports: None Musculoskeletal Surgical History: Reports: None Oncologic Surgical History: Reports: None Dermatological Surgical History: Reports: None - SUBSTANCE USE Tobacco Use Status *Q: Never Tobacco User Second Hand Smoke Exposure: No Recreational Drug Use History: No - HOME MEDS Home Medications: Home Meds Colestipol [Colestipol HCl] 1 tab PO BEDTIME 12/04/16 [History] Acetaminophen [Tylenol] 1 tab PO ASDIRECTED PRN 03/19/18 [History] Aspirin/Acetaminophen/Caffeine [Eql Migraine Formula Caplet] 2 tab PO ASDIRECTED PRN 03/19/18 [History] Ferrous Sulfate [Iron] 1 tab PO DAILY 03/19/18 [History] Pnv No.95/Ferrous Fum/Folic AC [ Vitamin Tablet] 1 tab PO DAILY 08/23/20 [History] - CURRENT (IN HOUSE) MEDS Current Meds: Current Medications Oxytocin/Sodium Chloride (Oxytocin 30 Unit/500 Ml-Ns) 30 unit in 500 mls @ 250 mls/hr IV TITRATE [facility] Lactated Ringer's (Ringers, Lactated) 1,000 mls @ 500 mls/hr IV BOLUS [facility] Last Admin: 08/29/20 05:49 Dose: 500 mls/hr Documented by: Sodium Chloride (Saline Flush) 10 ml FLUSH ASDIRECTED PRN PRN Reason: Keep Vein Open Sodium Chloride (Saline Flush) 2.5 ml FLUSH ASDIRECTED PRN PRN Reason: Keep Vein Open Sodium Chloride (Normal Saline) 10 ml IV ASDIRECTED PRN PRN Reason: IV Use Discontinued Medications Citric Acid/Sodium Citrate (Bicitra Solution) 30 ml PO ONETIME ONE Stop: 08/29/20 05:24 Ephedrine Sulfate (Ephedrine Sulfate) Confirm Administered Dose 50 mg .ROUTE .STK-MED ONE Stop: 08/29/20 08:27 Cefazolin Sodium/Dextrose 1 gm (/ Premix) 50 mls @ 100 mls/hr IV ONETIME ONE Stop: 08/29/20 05:52 Cefazolin Sodium/Dextrose (Ancef) Confirm Administered Dose 50 mls @ as directed .ROUTE .STK-MED ONE Stop: 08/29/20 08:05 Morphine Sulfate (Duramorph Pf) Confirm Administered Dose 10 mg .ROUTE .STK-MED ONE Stop: 08/29/20 07:22 Ondansetron HCl (Zofran) Confirm Administered Dose 4 mg .ROUTE .STK-MED ONE Stop: 08/29/20 07:22 Phenylephrine HCl (Zheng-Synephrine) Confirm Administered Dose 10 mg .ROUTE .STK- MED ONE Stop: 08/29/20 07:22
[2020-08-29] MEDS ORDERED: Oxytocin 10 Units/1 ML SDV IM PRN (08:53)
[2020-08-29] MEDS ORDERED: Misoprostol 200 MCG Tab RECTAL PRN (08:53)
[2020-08-29] MEDS ORDERED: diphenhydrAMINE 50 MG/ML SDV IVPUSH PRN (08:53)
[2020-08-29] MEDS ORDERED: Methylergonovine 0.2 MG/1 ML Amp IM PRN (08:53)
[2020-08-29] MEDS ORDERED: Bisacodyl 10 MG Supp RECTAL PRN (08:53)
[2020-08-29] MEDS ORDERED: Acetaminophen/oxyCODONE 325-5 MG Tab PO PRN (08:53)
[2020-08-29] MEDS ORDERED: Lanolin 100% Cream 7 GM Tube TOP PRN (08:53)
[2020-08-29] MEDS ORDERED: Tranexamic Acid 1,000 MG in Sodium Chloride 0.9% 100 ML IV PRN (08:53)
[2020-08-29] MEDS ORDERED: Ondansetron 4 MG/2 ML SDV IVPUSH PRN (08:53)
[2020-08-29] MEDS ORDERED: Lactated Ringers 1,000 ML IV SCH (09:00)
--- NOTE | 2020-08-29 09:07 | PCM.OPNOTE ---
- General Post-Op/Procedure Note Date of Surgery/Procedure: 08/29/20 Operative Procedure(s): Repeat LTCS Findings: Viable male APGARs 9, 9 weight pending. Delivery intact placenta with 3V cord Pre Op Diagnosis: 39 week IUP. Previous csection, desires repeat Post-Op Diagnosis: Same Anesthesia Technique: Spinal Primary Surgeon: Mary Perez Fluid Replacement, Intraop: 800 EBL in mLs: 400 Complications: none known Condition: Stable Free Text/Narrative:: Dictation [id number]
--- NOTE | 2020-08-29 10:46 | PCM.POSTAN ---
POST ANESTHESIA ASSESSMENT - MENTAL STATUS Mental Status: Alert, Oriented - RESPIRATORY Respiratory Status: Respiratory Rate WNL, Airway Patent, O2 Saturation Stable - CARDIOVASCULAR CV Status: Pulse Rate WNL, Blood Pressure Stable - GASTROINTESTINAL GI Status: No Symptoms - PAIN Pain Score: 0 - POST OP HYDRATION Hydration Status: Adequate & Stable
--- NOTE | 2020-08-29 11:44 | OR ---
SURGEON: Mary Perez M.D. DATE OF PROCEDURE: 08/29/2020 PREOPERATIVE DIAGNOSES: 1. A 39-week intrauterine . 2. Previous section, desires repeat. POSTOPERATIVE DIAGNOSES: 1. A 39-week intrauterine . 2. Previous section, desires repeat. PROCEDURE: Repeat low-transverse section. ANESTHESIA: Spinal. ESTIMATED BLOOD LOSS: 400 mL. FLUIDS: 1800 mL of crystalloid in the OR. FINDINGS: Viable male. score 9 at one minute and 9 at five minutes. Weight 3430 gm. Delivery Intact placenta, 3-vessel cord. DISPOSITION: to nursery, mom in PACU, stable. INDICATIONS: Katy is a 40-year-old, G2, P1, at 39 weeks gestational age, who presents today for scheduled repeat delivery. Risks of this procedure have been discussed. Proper consent was obtained. PROCEDURE IN DETAIL: The patient was taken to the operating room where she underwent spinal anesthetic, was then placed in dorsal supine position with a leftward tilt. SCDs to the lower extremities. [place] to gravity. She was prepped and draped in usual sterile fashion. Anesthesia was tested and found to be adequate. After time-out was performed, previous Pfannenstiel scar was now excised. Subcutaneous tissue was incised down to the level of the rectus fascia, which was incised in the midline, lateralized on either side sharply and bluntly. Superior aspect of the fascia was tented upward, dissected sharply and bluntly away from underlying muscle. In a similar aspect, this was performed with the inferior aspect of fascia. Rectus muscle was in the midline. Peritoneum was entered. Rectus muscle and peritoneum were now lateralized bluntly. Uterine position and position palpated. A self-retaining retractor was gently placed. Uterovesical reflection was visualized. Bladder flap was created sharply and bluntly. Bladder was mobilized away from the lower uterine segment. Low transverse hysterotomy was now performed. Uterine cavity was entered with blunt-ended scalpel. Amniotomy reveals a clear fluid. Hysterotomy now lateralized bluntly. 's head was flexed and delivered from the pelvis. Fundal pressure was applied and the infant's head was delivered followed by anterior shoulder, posterior shoulder, and remainder of the body without difficulty. The 's oropharynx and nares were bulb suctioned. After a delay, cord was clamped x2 and cut. Cord arterial, cord venous, cord blood sampling was obtained. The placenta was now delivered. Infant was handed off to attending nursery staff. Uterine cavity was cleared of all clot and debris. The hysterotomy repaired using 0 Vicryl in continuous running locked fashion followed by re-imbricating layer. Any areas of oozing were cauterized. Posterior aspect of the uterus inspected. No defects or hematomas found to be forming. Region was well irrigated, suction dried. Colonic gutters were cleared of all clot and debris, well irrigated and suction dried. Hysterotomy was once again inspected, found to be hemostatic. Self-retaining tractor was now removed. The bladder blade was placed. Hysterotomy was once again inspected and found to be hemostatic. Rectus muscles and peritoneum were now reapproximated using 0 Vicryl in inverted mattress suture technique. Anterior aspect of the muscle, posterior aspect of the fascia closely inspected. Any areas of oozing were cauterized. Rectus fascia was reapproximated using 0 Vicryl in continuous running fashion beginning laterally on each side and meeting in the midline. Subcutaneous tissue was well irrigated and suction dried. Any areas of oozing were cauterized. The skin edges were reapproximated using 3-0 Vicryl in subcuticular fashion with Tim needle, followed by half-inch Steri-Strips, Mastisol. Uterus remains firm. Sponge, instrument, and needle counts were correct x2. The patient tolerated the procedure well overall. She will go to PACU in stable condition, to nursery. NICKI / TIM /[id number] CANDY
[2020-08-29] MEDS: Ketorolac 30 MG/ML SDV IVPUSH SCH ×2 (15:09→20:57)
[2020-08-29] MEDS: diphenhydrAMINE 50 MG/ML SDV IVPUSH PRN ×2 (15:24→21:03)
[2020-08-29] MEDS: Docusate Sodium 100 MG Cap PO SCH (20:57)
[2020-08-30] MEDS: Ketorolac 30 MG/ML SDV IVPUSH SCH ×2 (02:56→09:42)
[2020-08-30] MEDS: Acetaminophen/oxyCODONE 325-5 MG Tab PO PRN ×4 (08:13→20:39)
--- NOTE | 2020-08-30 08:20 | PCM.PNPP ---
- General Info Date of Service: 08/30/20 Functional Status: Reports: Pain Controlled, Tolerating Diet - Review of Systems General: Reports: Fatigue. Denies: Fever, Weakness Pulmonary: Denies: Shortness of Breath Cardiovascular: Denies: Chest Pain, Palpitations, Lightheadedness Gastrointestinal: Reports: Abdominal Pain (incisional, has not started oral pain meds yet) Genitourinary: Reports: No Symptoms Musculoskeletal: Reports: No Symptoms Skin: Reports: No Symptoms Neurological: Reports: No Symptoms Psychiatric: Reports: No Symptoms - General Info Date of Service: 08/30/20 - Patient Data Vital Signs - Most Recent: Last Vital Signs Temp 36.3 C 08/30/20 05:00 Pulse 93 08/30/20 05:00 Resp 15 08/30/20 06:30 BP 112/69 08/30/20 05:00 Pulse Ox 98 08/30/20 06:30 Weight - Most Recent: 64.41 kg I&O - Last 24 Hours: Intake & Output 08/29/20 08/30/20 08/30/20 22:59 06:59 14:59 Output Total 700 1700 Balance -700 -1700 Lab Results - Last 24 Hours: Laboratory Results - last 24 hr 08/29/20 08/30/20 Range/Units 08:20 05:18 Hgb 11.5 L (12.0-16.0) g/dL Hct 35.0 L (36.0-46.0) % Cord ABG pH 7.297 (7.18-7.38) Cord ABG Base Excess -6 (-10--2) Cord VBG pH 7.335 (7.25-7.45) Cord VBG Base Excess -4 (-10--2) Med Orders - Current: Current Medications Bisacodyl (Dulcolax) 10 mg RECTAL ONETIME PRN PRN Reason: Constipation Diphenhydramine HCl (Benadryl) 25 mg IVPUSH Q4H PRN PRN Reason: Itching Stop: 08/30/20 08:33 Last Admin: 08/29/20 21:03 Dose: 25 mg Documented by: Diphenhydramine HCl (Benadryl) 25 mg IVPUSH Q6H PRN PRN Reason: Itching or Nausea Docusate Sodium (Colace) 100 mg PO BID [facility] Last Admin: 08/29/20 20:57 Dose: 100 mg Documented by: Emollient Ointment (Lansinoh Hpa) 0 gm TOP ASDIRECTED PRN PRN Reason: Sore Nipples Oxytocin/Sodium Chloride (Oxytocin 30 Unit/500 Ml-Ns) 30 unit in 500 mls @ 250 mls/hr IV TITRATE [facility] Lactated Ringer's (Ringers, Lactated) 1,000 mls @ 500 mls/hr IV BOLUS [facility] Last Admin: 08/29/20 15:17 Dose: 500 mls/hr Documented by: Lactated Ringer's (Ringers, Lactated) 1,000 mls @ 125 mls/hr IV ASDIRECTED [facility] Last Admin: 08/29/20 10:00 Dose: 125 mls/hr Documented by: Tranexamic Acid 1,000 mg/ (Sodium Chloride) 110 mls @ 660 mls/hr IV ONETIME PRN PRN Reason: Bleeding Ibuprofen (Motrin) 800 mg PO Q8H PRN PRN Reason: mild pain or fever Ketorolac Tromethamine (Toradol) 30 mg IVPUSH Q6H [facility] Stop: 08/30/20 09:01 Last Admin: 08/30/20 02:56 Dose: 30 mg Documented by: Methylergonovine Maleate (Methergine) 0.2 mg IM ONETIME PRN PRN Reason: Excessive Vaginal Bleeding Misoprostol (Cytotec) 1,000 mcg RECTAL ONETIME PRN PRN Reason: excessive bleeding Nalbuphine HCl (Nubain) 5 mg IVPUSH Q3H PRN PRN Reason: Pruritis Stop: 08/30/20 08:33 Naloxone HCl (Narcan) 0.1 mg IVPUSH ONETIME PRN PRN Reason: Respiratory Depression Stop: 08/30/20 08:33 Ondansetron HCl (Zofran) 4 mg IVPUSH Q4H PRN PRN Reason: Nausea/Vomiting Oxycodone/Acetaminophen (Percocet 325-5 Mg) 1 tab PO Q4H PRN PRN Reason: Pain (moderate 4-6) Last Admin: 08/30/20 08:13 Dose: 1 tab Documented by: Oxycodone/Acetaminophen (Percocet 325-5 Mg) 2 tab PO Q4H PRN PRN Reason: Pain (moderate 4-6) Oxytocin (Pitocin) 10 unit IM ASDIRECTED PRN PRN Reason: Excessive Vaginal Bleeding Sodium Chloride (Saline Flush) 10 ml FLUSH ASDIRECTED PRN PRN Reason: Keep Vein Open Sodium Chloride (Saline Flush) 2.5 ml FLUSH ASDIRECTED PRN PRN Reason: Keep Vein Open Sodium Chloride (Normal Saline) 10 ml IV ASDIRECTED PRN PRN Reason: IV Use Discontinued Medications Citric Acid/Sodium Citrate (Bicitra Solution) 30 ml PO ONETIME ONE Stop: 08/29/20 05:24 Ephedrine Sulfate (Ephedrine Sulfate) Confirm Administered Dose 50 mg .ROUTE .STK-MED ONE Stop: 08/29/20 08:27 Cefazolin Sodium/Dextrose 1 gm (/ Premix) 50 mls @ 100 mls/hr IV ONETIME ONE Stop: 08/29/20 05:52 Cefazolin Sodium/Dextrose (Ancef) Confirm Administered Dose 50 mls @ as directed .ROUTE .STK-MED ONE Stop: 08/29/20 08:05 Ketorolac Tromethamine (Toradol) Confirm Administered Dose 30 mg .ROUTE .STK-MED ONE Stop: 08/29/20 08:32 Morphine Sulfate (Duramorph Pf) Confirm Administered Dose 10 mg .ROUTE .STK-MED ONE Stop: 08/29/20 07:22 Ondansetron HCl (Zofran) Confirm Administered Dose 4 mg .ROUTE .STK-MED ONE Stop: 08/29/20 07:22 Phenylephrine HCl (Zheng-Synephrine) Confirm Administered Dose 10 mg .ROUTE .STK- MED ONE Stop: 08/29/20 07:22 - Interaction Support Person: - Recovery Exam Fundal Tone: Firm Fundal Level: 1 Fingerbreadths Below Umbilicus Fundal Placement: Midline Lochia Amount: Scant Lochia Color: Rubra/Red Bladder Status: Indwelling Catheter in Place - Exam General: Alert, Oriented Lungs: Normal Respiratory Effort Cardiovascular: Regular Rate, Regular Rhythm GI/Abdominal Exam: Normal Bowel Sounds, Soft Extremities: Pedal Edema (trace). No: Jose's Sign Skin: Warm, Dry, Intact Wound/Incisions: Dressing Dry and Intact Neurological: No New Focal Deficit Psy/Mental Status: Alert, Normal Affect, Normal Mood - Problem List & Annotations (1) delivery delivered SNOMED Code(s): 671190293 Code(s): O82 - ENCOUNTER FOR DELIVERY WITHOUT INDICATION Status: Acute Current Visit: No - Problem List Review Problem List Initiated/Reviewed/Updated: Yes - My Orders Last 24 Hours: My Active Orders 08/29/20 08:53 Patient Status [ADT] Routine Ambulate [RC] PER UNIT ROUTINE Antiembolic Devices [RC] PER UNIT ROUTINE Communication Order [RC] PER UNIT ROUTINE Communication Order [RC] PER UNIT ROUTINE Communication Order [RC] Per Unit Routine May Shower [RC] ASDIRECTED Notify Provider Intake and Out [RC] ASDIRECTED Notify Provider Vital Signs [RC] ASDIRECTED RT Incentive Spirometry [RC] Q2HWA Vital Signs [RC] PER UNIT ROUTINE Acetaminophen/oxyCODONE [Percocet 325-5 MG] 1 tab PO Q4H PRN Acetaminophen/oxyCODONE [Percocet 325-5 MG] 2 tab PO Q4H PRN Lanolin [Lansinoh HPA] See Dose Instructions TOP ASDIRECTED PRN Methylergonovine [Methergine] 0.2 mg IM ONETIME PRN Ondansetron [Zofran] 4 mg IVPUSH Q4H PRN Oxytocin [Pitocin] 10 unit IM ASDIRECTED PRN Tranexamic Acid [Cyklokapron] 1,000 mg Sodium Chloride 0.9% [Normal Saline] 100 ml IV ONETIME bisacodyL [Dulcolax] 10 mg RECTAL ONETIME PRN diphenhydrAMINE [Benadryl] 25 mg IVPUSH Q6H PRN miSOPROStoL [Cytotec] 1,000 mcg RECTAL ONETIME PRN Abdominal Binder [OM.PC] Routine Assess Lochia [WOMSER] Per Unit Routine Assess Uterine Involution [WOMSER] Per Unit Routine Breast Pump [WOMSER] Per Unit Routine Heat Therapy [OM.PC] Routine Ice Therapy [OM.PC] Routine Peripheral IV Discontinue [OM.PC] Routine Sequential Compression Device [OM.PC] Per Unit Routine 08/29/20 08:54 Cooling Warming Measures [RC] ASDIRECTED 08/29/20 09:00 Docusate Sodium [Colace] 100 mg PO BID Ketorolac [Toradol] 30 mg IVPUSH Q6H Lactated Ringers [Ringers, Lactated] 1,000 ml IV ASDIRECTED 08/29/20 Lunch Regular Diet [DIET] 08/30/20 15:00 Ibuprofen [Motrin] 800 mg PO Q8H PRN - Assessment Assessment:: POD 1 status post repeat C section - Plan Plan:: VS are stable and labs reassuring. Ambulate and may shower today. Continue postoperative cares. If remains stable, anticipate discharge in am. Rx for percocet sent into [facility] today.
[2020-08-30] MEDS: Docusate Sodium 100 MG Cap PO SCH ×2 (09:43→20:38)
[2020-08-30] MEDS: Ibuprofen 800 MG Tab PO PRN (20:40)
[2020-08-31] MEDS: Acetaminophen/oxyCODONE 325-5 MG Tab PO PRN ×3 (00:17→08:19)
[2020-08-31 07:54] VITALS: BP 117/69; PULSE 83
[2020-08-31] MEDS: Docusate Sodium 100 MG Cap PO SCH (08:20)
--- NOTE | 2020-08-31 08:56 | PCM.PNPP ---
- General Info Date of Service: 08/31/20 Subjective Update: 40yo P2 s/p repeat , POD 2 , denies any complains Bottle feeding Functional Status: Reports: Pain Controlled, Tolerating Diet, Ambulating, Urinating - Review of Systems General: Reports: No Symptoms HEENT: Reports: No Symptoms Pulmonary: Reports: No Symptoms Cardiovascular: Reports: No Symptoms Gastrointestinal: Reports: No Symptoms Genitourinary: Reports: No Symptoms Musculoskeletal: Reports: No Symptoms - General Info Date of Service: 08/31/20 - Patient Data Vital Signs - Most Recent: Last Vital Signs Temp 36.1 C 08/31/20 07:53 Pulse 83 08/31/20 07:53 Resp 18 08/31/20 07:53 BP 117/69 08/31/20 07:53 Pulse Ox 96 08/31/20 07:53 Weight - Most Recent: 64.41 kg Med Orders - Current: Current Medications Bisacodyl (Dulcolax) 10 mg RECTAL ONETIME PRN PRN Reason: Constipation Diphenhydramine HCl (Benadryl) 25 mg IVPUSH Q6H PRN PRN Reason: Itching or Nausea Docusate Sodium (Colace) 100 mg PO BID [facility] Last Admin: 08/31/20 08:20 Dose: 100 mg Documented by: Emollient Ointment (Lansinoh Hpa) 0 gm TOP ASDIRECTED PRN PRN Reason: Sore Nipples Oxytocin/Sodium Chloride (Oxytocin 30 Unit/500 Ml-Ns) 30 unit in 500 mls @ 250 mls/hr IV TITRATE [facility] Lactated Ringer's (Ringers, Lactated) 1,000 mls @ 500 mls/hr IV BOLUS [facility] Last Admin: 08/29/20 15:17 Dose: 500 mls/hr Documented by: Lactated Ringer's (Ringers, Lactated) 1,000 mls @ 125 mls/hr IV ASDIRECTED [facility] Last Admin: 08/29/20 10:00 Dose: 125 mls/hr Documented by: Tranexamic Acid 1,000 mg/ (Sodium Chloride) 110 mls @ 660 mls/hr IV ONETIME PRN PRN Reason: Bleeding Ibuprofen (Motrin) 800 mg PO Q8H PRN PRN Reason: mild pain or fever Last Admin: 08/30/20 20:40 Dose: 800 mg Documented by: Methylergonovine Maleate (Methergine) 0.2 mg IM ONETIME PRN PRN Reason: Excessive Vaginal Bleeding Misoprostol (Cytotec) 1,000 mcg RECTAL ONETIME PRN PRN Reason: excessive bleeding Ondansetron HCl (Zofran) 4 mg IVPUSH Q4H PRN PRN Reason: Nausea/Vomiting Oxycodone/Acetaminophen (Percocet 325-5 Mg) 1 tab PO Q4H PRN PRN Reason: Pain (moderate 4-6) Last Admin: 08/31/20 08:19 Dose: 1 tab Documented by: Oxycodone/Acetaminophen (Percocet 325-5 Mg) 2 tab PO Q4H PRN PRN Reason: Pain (moderate 4-6) Oxytocin (Pitocin) 10 unit IM ASDIRECTED PRN PRN Reason: Excessive Vaginal Bleeding Sodium Chloride (Saline Flush) 10 ml FLUSH ASDIRECTED PRN PRN Reason: Keep Vein Open Sodium Chloride (Saline Flush) 2.5 ml FLUSH ASDIRECTED PRN PRN Reason: Keep Vein Open Sodium Chloride (Normal Saline) 10 ml IV ASDIRECTED PRN PRN Reason: IV Use Discontinued Medications Citric Acid/Sodium Citrate (Bicitra Solution) 30 ml PO ONETIME ONE Stop: 08/29/20 05:24 Diphenhydramine HCl (Benadryl) 25 mg IVPUSH Q4H PRN PRN Reason: Itching Stop: 08/30/20 08:33 Last Admin: 08/29/20 21:03 Dose: 25 mg Documented by: Ephedrine Sulfate (Ephedrine Sulfate) Confirm Administered Dose 50 mg .ROUTE .STK-MED ONE Stop: 08/29/20 08:27 Cefazolin Sodium/Dextrose 1 gm (/ Premix) 50 mls @ 100 mls/hr IV ONETIME ONE Stop: 08/29/20 05:52 Cefazolin Sodium/Dextrose (Ancef) Confirm Administered Dose 50 mls @ as directed .ROUTE .STK-MED ONE Stop: 08/29/20 08:05 Ketorolac Tromethamine (Toradol) Confirm Administered Dose 30 mg .ROUTE .STK-MED ONE Stop: 08/29/20 08:32 Ketorolac Tromethamine (Toradol) 30 mg IVPUSH Q6H [facility] Stop: 08/30/20 09:01 Last Admin: 08/30/20 09:42 Dose: 30 mg Documented by: Morphine Sulfate (Duramorph Pf) Confirm Administered Dose 10 mg .ROUTE .STK-MED ONE Stop: 08/29/20 07:22 Nalbuphine HCl (Nubain) 5 mg IVPUSH Q3H PRN PRN Reason: Pruritis Stop: 08/30/20 08:33 Naloxone HCl (Narcan) 0.1 mg IVPUSH ONETIME PRN PRN Reason: Respiratory Depression Stop: 08/30/20 08:33 Ondansetron HCl (Zofran) Confirm Administered Dose 4 mg .ROUTE .STK-MED ONE Stop: 08/29/20 07:22 Phenylephrine HCl (Zheng-Synephrine) Confirm Administered Dose 10 mg .ROUTE .STK- MED ONE Stop: 08/29/20 07:22 - Infant Interaction Support Person: - Recovery Exam Fundal Tone: Firm Fundal Level: 1 Fingerbreadths Below Umbilicus Fundal Placement: Midline Lochia Amount: Scant Lochia Color: Rubra/Red Perineum Description: Intact, Minimal Bruising/Swelling Episiotomy/Laceration: None Bladder Status: Voiding Urinary Elimination: Voided - Exam General: Alert HEENT: Pupils Equal Neck: Supple Lungs: Clear to Auscultation Cardiovascular: Regular Rate, Regular Rhythm GI/Abdominal Exam: Normal Bowel Sounds Extremities: Normal Inspection Neurological: No New Focal Deficit Psy/Mental Status: Alert - Problem List & Annotations (1) delivery delivered SNOMED Code(s): 664574826 Code(s): O82 - ENCOUNTER FOR DELIVERY WITHOUT INDICATION Status: Acute Current Visit: No - Problem List Review Problem List Initiated/Reviewed/Updated: No - Assessment Assessment:: POD 2 status post repeat C section, stable - Plan Plan:: Discharge home today Routine
[2020-08-31] MEDS: Ibuprofen 800 MG Tab PO PRN (11:53)
== END 2020-08-31 12:13 | disposition home or self-care (01) | DRG 787 ==
LOC: MW.OB 05:12
PROVIDERS: ADMIT Obstetrics & Gynecology; ATTEND Obstetrics & Gynecology
PROC: 10D00Z1 Extraction of Products of Conception, Low, Open Approach (ICD-10-PCS; principal; 2020-08-29)
DX: O34.211 Maternal care for low transverse scar from previous cesarean delivery (principal); O99.354 Diseases of the nervous system complicating childbirth; Z37.0 Single live birth; Z3A.39 39 weeks gestation of pregnancy; G43.909 Migraine, unspecified, not intractable, without status migrainosus
CPT/HCPCS: 01961; 36415; 59025; 82803; 85014; 85018; 85027; 86592; 86850; 86900; 86901; 88307; A9270-GY; J0690; J1200; J1885; J2270; J2370; J2405; J7120